=== PATIENT | female | born 1965 | race Hispanic/Latino ===

== ENCOUNTER 2016-12-04 08:36 | Outpatient (CLI) | payer OTHER ==
--- NOTE | 2016-12-04 11:44 | Fluoroscopy Report ---
Air contrast barium enema: History: Colon screening screening. Findings: There is no obstruction to the flow of barium from rectosigmoid to cecum. Terminale ileum is very faintly visualized. No extrinsic or intrinsic filling defects are noted in the descending transverse and ascending colon. Scattered diverticula noted in sigmoid. Post evacuation film does not reveal significant mucosal abnormality. Impression: Diverticulosis sigmoid colon.
== END 2016-12-04 08:37 | disposition home or self-care (01) ==
LOC: FLUORO 08:36
PROVIDERS: ATTEND Internal Medicine Gastroenterology
DX: Z12.11 Encounter for screening for malignant neoplasm of colon (principal); K57.30 Diverticulosis of large intestine without perforation or abscess without bleeding
CPT/HCPCS: 74280